=== PATIENT | male | born 1960 | race Caucasian/White ===

== ENCOUNTER 2019-11-22 15:50 | Inpatient (IN) | payer OTHER ==
[~2019-11-22] VITALS: Ht 182.9 cm; Wt 112.9 kg
[2019-11-22] MEDS ORDERED: SODIUM CHLORIDE 0.9% 1,000 ML IV ONE ×2 (16:45→18:45)
[2019-11-22] MEDS ORDERED: SODIUM CHLORIDE 0.9% 1,000 ML IVB ONE (17:19)
[2019-11-22 17:53] LABS: Basophils # (auto) 0.1 10 ^3/uL (0-0.2); Eosinophils # (auto) 0.2 10 ^3/uL (0-0.8); Eosinophils % (auto) 1.8 % (0.0-7.0); Hemoglobin 17.8 g/dL (13.5-17.5); Lymphocytes # (auto) 1.8 10 ^3/uL (0.4-5.4); Monocytes # (auto) 1.2 10 ^3/uL (0-1.3)
[2019-11-22 17:54] LABS: Hematocrit 53.3 % (41.0-53.0); Lymphocytes % (auto) 20.7 % (10.0-50.0); Mean Corpuscular Hemoglobin 34.7 pg (28.0-32.0); Mean Corpuscular Hgb Conc. 33.5 g/dL (32.0-36.0); Mean Corpuscular Volume 103.6 fL (80.0-100.0); Monocytes % (auto) 13.4 % (0.0-12.0); Neutrophils # (auto) 5.4 10 ^3/uL (1.6-8.6); Neutrophils % (auto) 63.1 % (37.0-80.0); Nucleated Red Blood Cells % 0.1 %; Platelet Count (auto) 217 10^3/uL (140-450); Red Blood Cells 5.14 10^6/uL (4.5-5.90); Red Cell Distribution Width 15.9 % (11.8-14.3); White Blood Cell 8.6 10^3/uL (4.4-10.8)
[2019-11-22 18:08] LABS: Albumin 2.7 g/dL (3.4-5.0); Calcium 7.8 mg/dL (8.5-10.1)
[2019-11-22 18:11] LABS: Bilirubin, Total 1.7 mg/dL (0.2-1.0); Total Protein 7.7 g/dL (6.4-8.2)
[2019-11-22 18:14] LABS: Potassium 2.6 mmol/L (3.5-5.1)
[2019-11-22] MEDS ORDERED: cefTRIAXone 1GM/50ML D5W 50 ML IV ONE (18:30)
[2019-11-22] MEDS ORDERED: FOLIC ACID 1 MG, MULTIPLE VITAMIN 10 ML, MAGNESIUM SULF SDV 50% 8 MEQ, THIAMINE INJ 100... INJ STA ×5 (18:41)
[2019-11-22] MEDS ORDERED: THIAMINE HCL 100 MG TAB PO ONE (18:45)
[2019-11-22] MEDS ORDERED: POTASSIUM CHL 20 Meq TABLET PO ONE ×2 (18:45)
[2019-11-22 19:08] LABS: Salicylate < 1.7 mg/dL (2.8-20.0)
[2019-11-22 19:14] LABS: Lactic Acid w/Reflex 3.7 mmol/L (0.4-2.0)
[2019-11-22 20:31] LABS: Acetaminophen < 2.0 ug/mL (10-30)
[2019-11-22] MEDS: chlordiazePOXIDE HCL 25 MG CAP PO SCH (22:00)
[2019-11-22] MEDS ORDERED: SODIUM CHLORIDE 0.9% 1,000 ML IV SCH (22:23)
[2019-11-22] MEDS ORDERED: ACETAMINOPHEN 500 MG TAB PO PRN (22:30)
[2019-11-22] MEDS ORDERED: ALBUTEROL SULF 2.5 MG/0.5ML(0.5%) NEB SOLN NEB PRN (22:30)
[2019-11-22] MEDS ORDERED: IPRATROPIUM BROM 0.5 MG/2.5ML INH SOL NEB PRN (22:30)
[2019-11-23] VITALS (10 sets, daily range): BP systolic 129–163; BP diastolic 72–109
[2019-11-23] MEDS: POTASSIUM CHL 20MEQ/100ML 100 ML IV SCH ×2 (00:12→02:35)
[2019-11-23] MEDS ORDERED: cloNIDine HCL 0.1 MG TAB PO ONE (00:45)
[2019-11-23] MEDS ORDERED: TEMAZEPAM 15 MG CAP PO PRN (00:45)
[2019-11-23] MEDS ORDERED: TRAM100T37 PO (02:27)
[2019-11-23] MEDS ORDERED: POTA10TA51 PO (02:27)
[2019-11-23] MEDS ORDERED: FURO20TA3 PO (02:27)
[2019-11-23] MEDS ORDERED: GABA300C10 PO (02:27)
[2019-11-23] MEDS ORDERED: CLON0.1T PO (02:27)
[2019-11-23] MEDS: chlordiazePOXIDE HCL 25 MG CAP PO SCH (05:24)
[2019-11-23] MEDS: GABAPENTIN 300 MG CAP PO SCH ×2 (05:25→13:35)
[2019-11-23] MEDS ORDERED: ALBUTEROL SULF HFA 90MCG INH 200DOSE IN SCH (06:00)
[2019-11-23 07:48] LABS: Hemoglobin 16.3 g/dL (13.5-17.5); Lymphocytes # (auto) 1.1 10 ^3/uL (0.4-5.4)
[2019-11-23 07:50] LABS: Basophils # (auto) 0.1 10 ^3/uL (0-0.2); Basophils % (auto) 0.7 % (0.0-2.0); Eosinophils # (auto) 0.2 10 ^3/uL (0-0.8); Eosinophils % (auto) 1.9 % (0.0-7.0); Hematocrit 47.9 % (41.0-53.0); Lymphocytes % (auto) 12.8 % (10.0-50.0); Mean Corpuscular Hemoglobin 35.1 pg (28.0-32.0); Mean Corpuscular Hgb Conc. 34.1 g/dL (32.0-36.0); Monocytes # (auto) 1.3 10 ^3/uL (0-1.3); Monocytes % (auto) 14.9 % (0.0-12.0); Neutrophils # (auto) 5.9 10 ^3/uL (1.6-8.6); Neutrophils % (auto) 69.7 % (37.0-80.0); Platelet Count (auto) 168 10^3/uL (140-450); Red Blood Cells 4.65 10^6/uL (4.5-5.90); Red Cell Distribution Width 15.8 % (11.8-14.3); White Blood Cell 8.5 10^3/uL (4.4-10.8)
[2019-11-23 08:06] LABS: Potassium 3.1 mmol/L (3.5-5.1)
[2019-11-23 08:19] LABS: Albumin 2.5 g/dL (3.4-5.0); BUN/Creatinine Ratio 3.6; Bilirubin, Total 2.3 mg/dL (0.2-1.0); Calcium 7.1 mg/dL (8.5-10.1); Total Protein 6.8 g/dL (6.4-8.2)
[2019-11-23] MEDS ORDERED: CHOLECALCIFEROL (VITD3) 1,000IU=25mCg TAB PO SCH (10:00)
[2019-11-23] MEDS ORDERED: ENOXAPARIN SOD 40 MG/0.4 ML SYRINGE SC SCH (10:00)
[2019-11-23] MEDS ORDERED: OSELTAMIVIR 75 MG CAP PO SCH ×2 (10:00→22:00)
[2019-11-23] MEDS ORDERED: cloNIDine HCL 0.1 MG TAB PO SCH (10:00)
[2019-11-23] MEDS ORDERED: chlordiazePOXIDE HCL 25 MG CAP PO SCH ×2 (10:00→18:00)
[2019-11-23] MEDS ORDERED: ZINC SULFATE 220mg CAP or TAB PO SCH (10:00)
[2019-11-23] MEDS ORDERED: DOXYCYCLINE 100 MG TAB/CAP PO SCH (10:00)
[2019-11-23] MEDS ORDERED: cefTRIAXone 1GM/50ML D5W 50 ML IV SCH (10:00)
[2019-11-23] MEDS ORDERED: ASCORBIC ACID 1,000 MG TAB PO SCH (10:00)
[2019-11-23] MEDS ORDERED: MAGNESIUM OXIDE 400 MG TAB PO ONE (10:45)
[2019-11-23] MEDS ORDERED: POTASSIUM EFFERVESENT TAB 25 MEQ PO ONE (11:00)
[2019-11-23 11:23] LABS: Urine Bacteria NONE SEEN /hpf (None Seen); Urine Blood Negative /uL (Negative); Urine WBC <1 /hpf (0 - 3)
[2019-11-23 11:57] LABS: Amphetamine Screen, Urine NEGATIVE (NEGATIVE); Barbiturate Scree,Urine NEGATIVE (NEGATIVE); Benzodiazephine Screen, Urine POSITIVE (NEGATIVE); Cannabinoid Screen, Urine POSITIVE (NEGATIVE); Cocaine Screen, Urine NEGATIVE (NEGATIVE); Opiate Scree,Urine NEGATIVE (NEGATIVE); Phencyclidine Screen, Urine NEGATIVE (NEGATIVE)
[2019-11-23] MEDS ORDERED: MAGNESIUM OXIDE 400 MG TAB PO SCH (22:00)
[2019-11-24] MEDS ORDERED: chlordiazePOXIDE HCL 25 MG CAP PO SCH ×2 (10:00→18:00)
[2019-11-25] MEDS ORDERED: chlordiazePOXIDE HCL 25 MG CAP PO SCH (07:00)
[2019-11-26] MEDS ORDERED: chlordiazePOXIDE HCL 25 MG CAP PO SCH (07:00)
== END 2019-11-23 20:48 | disposition short-term general hospital (02) | DRG 194 ==
LOC: EDBD 15:50 → ER 15:50 → OVERFLOW 15:51 → EAST 23:26 → TELE-CENTR 11-23 16:00
PROVIDERS: ADMIT Hospitalist; ATTEND Internal Medicine Nephrology
DX: J10.00 Influenza due to other identified influenza virus with unspecified type of pneumonia (principal); E87.2 Acidosis; I10 Essential (primary) hypertension; G62.9 Polyneuropathy, unspecified; E87.6 Hypokalemia; F10.229 Alcohol dependence with intoxication, unspecified; Z20.828 Contact with and (suspected) exposure to other viral communicable diseases; S80.02XA Contusion of left knee, initial encounter; X58.XXXA Exposure to other specified factors, initial encounter; Y93.89 Activity, other specified; Y92.89 Other specified places as the place of occurrence of the external cause; Y99.8 Other external cause status
CPT/HCPCS: 36415; 70450; 71045; 80053; 80307; 80320; 80329; 81001; 83605; 83735; 84484; 85025; 87040; 87070; 87804; 87880; 93005; G0378; J0696; J3480